=== PATIENT | female | born 1980 | race Hispanic/Latino ===

== ENCOUNTER 2018-01-03 08:47 | Emergency (ER) | payer MEDICAID ==
[2018-01-03 09:11] VITALS: BP 125/79
[2018-01-03] MEDS ORDERED: TORADOL IM ONE (09:44)
[2018-01-03] MEDS ORDERED: PEPCID PO ONE (09:44)
--- NOTE | 2018-01-03 09:46 | Emergency Department Report ---
ED Abdominal Pain HPI - General Chief Complaint: Abdominal Pain Stated Complaint: STOMACH PAIN Time Seen by Provider: 01/03/18 09:36 Source: patient Mode of arrival: Ambulatory Limitations: No Limitations - History of Present Illness Initial Comments: Patient is a 37-year-old female who presents with 1 month of abdominal pain. Patient states she seen gastroenterology and had EGD as well as colonoscopy as well as her [employer] who did not ultrasound and no evidence so far has found a reason for her pain. Patient scheduled for an MRI coming up soon. Patient denies any vomiting diarrhea or cough cold congestion and fevers or chills or abnormal vaginal bleeding. Patient states there is some mild nausea however. - Related Data Previous Rx's Medication Instructions Recorded Last Taken Type Ciprofloxacin HCl [Cipro] 500 mg PO BID #14 tablet 01/03/18 Unknown Rx Ketorolac [Toradol] 10 mg PO Q6H PRN #14 tablet 01/03/18 Unknown Rx Allergies Allergy/AdvReac Type Severity Reaction Status Date / Time prednisone Allergy Rash Verified 01/03/18 09:11 morphine AdvReac Itching Verified 01/03/18 09:11 ED Review of Systems ROS: Stated complaint: STOMACH PAIN Other details as noted in HPI Comment: All other systems reviewed and negative ED Past Medical Hx - Past Medical History Previous Medical History?: Yes Hx Psychiatric Treatment: Yes (anxiety) Additional medical history: hypothyroid - Surgical History Past Surgical History?: Yes Additional Surgical History: Partial hysterectomy, bladder sling, hemorrhoidectomy - Social History Smoking Status: Never Smoker Substance Use Type: None - Medications Home Medications: Home Medications Medication Instructions Recorded Confirmed Last Taken Type Ciprofloxacin HCl [Cipro] 500 mg PO BID #14 tablet 01/03/18 Unknown Rx Ketorolac [Toradol] 10 mg PO Q6H PRN #14 tablet 01/03/18 Unknown Rx ED Physical Exam - General Limitations: No Limitations General appearance: alert, in no apparent distress - Head Head exam: Present: atraumatic, normocephalic - Eye Eye exam: Present: normal appearance - ENT ENT exam: Present: mucous membranes moist - Neck Neck exam: Present: normal inspection - Respiratory Respiratory exam: Present: normal lung sounds bilaterally. Absent: respiratory distress - Cardiovascular Cardiovascular Exam: Present: regular rate, normal rhythm. Absent: systolic murmur, diastolic murmur, rubs, gallop - GI/Abdominal GI/Abdominal exam: Present: soft, normal bowel sounds. Absent: distended ( patient states that she is distended however abdomen is soft there is a fair amount of adipose tissue present however that does not clinically appear to be any ascites), tenderness, guarding, rigid - Extremities Exam Extremities exam: Present: normal inspection - Back Exam Back exam: Present: normal inspection - Neurological Exam Neurological exam: Present: alert, oriented X3 - Psychiatric Psychiatric exam: Present: normal affect, normal mood - Skin Skin exam: Present: warm, dry, intact, normal color. Absent: rash ED Course Vital Signs 01/03/18 01/03/18 09:06 09:56 Temperature 98.6 F Pulse Rate 97 H Respiratory 16 20 Rate Blood Pressure 125/79 O2 Sat by Pulse 100 Oximetry ED Medical Decision Making - Lab Data Lab Results 01/03/18 Range/Units 09:33 Urine Color Yellow (Yellow) Urine Turbidity Hazy (Clear) Urine pH 6.0 (5.0-7.0) Ur Specific [place] 1.019 (1.003-1.030) Urine Protein <15 mg/dl (Negative) mg/dL Urine Glucose (UA) Neg (Negative) mg/dL Urine Ketones Neg (Negative) mg/dL Urine Blood Neg (Negative) Urine Nitrite Neg (Negative) Urine Bilirubin Neg (Negative) Urine Urobilinogen < 2.0 (<2.0) mg/dL Ur Leukocyte Esterase Tr (Negative) Urine WBC (Auto) 17.0 H (0.0-6.0) /HPF Urine RBC (Auto) 2.0 (0.0-6.0) /HPF U Epithel Cells (Auto) 14.0 H (0-13.0) /HPF Urine Bacteria (Auto) 2+ (Negative) /HPF Urine Mucus Few /HPF Urine HCG, Qual Negative (Negative) - Medical Decision Making Patient is on her last day of antibiotics for urinary tract infection which she is just alerted me to towards the end of her visit after we went over her results. The patient will be switched to Cipro. Patient x-ray shows no acute process. Patient be discharged home and follow with her primary physicians. Critical care attestation.: If time is entered above; I have spent that time in minutes in the direct care of this critically ill patient, excluding procedure time. ED Disposition Clinical Impression: Chronic abdominal pain UTI (urinary tract infection) Qualifiers: Urinary tract infection type: acute cystitis Hematuria presence: without hematuria Qualified Code(s): N30.00 - Acute cystitis without hematuria Disposition: TO HOME OR SELFCARE Is pt being admited?: No Does the pt Need Aspirin: No Condition: Stable Instructions: Abdominal Pain (ED), Urinary Tract Infection in Women (ED) Referrals: ANTONY VALENTIN MD [Primary Care Provider] - 3-5 Days
[2018-01-03 10:04] LABS: Bacteria,Urine 2+ /HPF (Negative); Bilirubin,Urine NEG (Negative); Blood,Urine NEG (Negative); Color,Urine Yellow (Yellow); Mucus,Urine FEW /HPF; Protein,Urine <15 mg/dL mg/dL (Negative); Urobilinogen,Urine < 2.0 mg/dL (<2.0)
[2018-01-03 10:05] LABS: HCG Qualitative,Urine Negative (Negative)
[2018-01-03] MEDS ORDERED: DIFLUCAN PO NR (11:00)
--- NOTE | 2018-01-03 11:11 | XRay Report ---
ABDOMEN RADIOGRAPH INDICATION: Chronic abdominal pain. COMPARISON: None similar at this institution. FINDINGS: Frontal abdominal radiographs demonstrate nonobstructive bowel gas pattern. No focal suspicious calcifications, pneumatosis or pneumoperitoneum. Clear visualized lung bases. Tiny pelvic phleboliths. Tiny ossific densities noted at the acetabular corners bilaterally. CONCLUSION: Normal abdominal radiograph, as described. Thank you for the opportunity to participate in this patient's care.
== END 2018-01-03 11:18 | disposition home or self-care (01) ==
LOC: ED 08:47
DX: N39.0 Urinary tract infection, site not specified (principal); Z88.5 Allergy status to narcotic agent; F41.9 Anxiety disorder, unspecified; E03.9 Hypothyroidism, unspecified; Z90.711 Acquired absence of uterus with remaining cervical stump
CPT/HCPCS: 74018; 81001; 81025; 96372; 99284; J1885